=== PATIENT | male | born 1995 | race Caucasian/White ===

== ENCOUNTER 2018-02-08 14:10 | Emergency (ER) | payer SELFPAY ==
[2018-02-08] MEDS: KETOROLAC 30 MG INJ IM (18:58)
== END 2018-02-08 19:55 | disposition home or self-care (01) ==
LOC: FTE 14:10
DX: S49.91XA Unspecified injury of right shoulder and upper arm, initial encounter (principal); W18.30XA Fall on same level, unspecified, initial encounter; Y92.322 Soccer field as the place of occurrence of the external cause
CPT/HCPCS: 73030; 73030-RT; 96372; 99284-25